=== PATIENT | female | born 1980 | race African-American/Black ===

== ENCOUNTER 2018-10-06 15:13 | Day surgery (SDC) | payer OTHER ==
[2018-10-06 16:10] VITALS: BMI 23.7
--- NOTE | 2018-10-06 16:35 | PDOC ---
History of Present Illness - General Chief Complaint: [facility] [place] Stated Complaint: SENT BY PCP Time Seen by Provider: 10/06/18 16:13 History Source: Patient Exam Limitations: No Limitations Past History - Travel Traveled outside of the country in the last 30 days: No Close contact w/someone who was outside of country & ill: No - Past Medical History Allergies/Adverse Reactions: Allergies Allergy/AdvReac Type Severity Reaction Status Date / Time No Known Allergies Allergy Verified 10/06/18 16:21 Home Medications: Ambulatory Orders NK [No Known Home Medication] 10/06/18 - Suicide/Smoking/Psychosocial Hx Smoking History: Unknown if ever smoked Hx Alcohol Use: Yes (Social) Drug/Substance Use Hx: No Review of Systems - Review of Systems Able to Perform ROS?: Yes Comments:: 10/06/18 18:12 CONSTITUTIONAL: Absent: fever, chills, diaphoresis, generalized weakness, malaise, loss of appetite GASTROINTESTINAL: Absent: abdominal pain, abdominal distension, nausea, vomiting, diarrhea, constipation, melena, hematochezia GENITOURINARY: Absent: dysuria, frequency, urgency, hesitancy, hematuria, flank pain, genital pain, vaginal bleeding MUSCULOSKELETAL: Absent: myalgia, arthralgia, joint swelling SKIN: Absent: rash, itching, pallor NEUROLOGIC: Absent: headache, focal weakness or paresthesias, dizziness, unsteady gait, seizure, mental status changes, bladder or bowel incontinence Is the patient limited Azeri proficient: No *Physical Exam - Vital Signs Last Vital Signs Temp Pulse Resp BP Pulse Ox 98.1 F 81 20 93/61 100 10/06/18 16:06 10/06/18 16:06 10/06/18 16:06 10/06/18 16:06 10/06/18 16:06 - Physical Exam Comments: 10/06/18 18:14 GENERAL: Well developed, well nourished. Awake and alert. No acute distress. ABDOMINAL: Soft. Non-tender. Non-distended. No rebound or guarding. No organomegaly. Normoactive bowel sounds. EXTREMITIES: No cyanosis. No clubbing. No edema. No calf tenderness. SKIN: Warm and dry. Normal capillary refill. No rashes. No jaundice. NEUROLOGICAL: Alert, awake, appropriate. Cranial nerves 2-12 intact. No deficits to light touch and temperature in face, upper extremities and lower extremities. No motor deficits in the in face, upper extremities and lower extremities. Normoreflexic in the upper and lower extremities. Normal speech. Toes are down- going bilaterally. Gait is normal without ataxia. Medical Decision Making - Medical Decision Making 10/06/18 18:15 The patient is a 38 -year-old female who presents to the ER today for a ultrasound. Patient states that she was at [facility] this afternoon for evaluation after positive test. Her last menstrual cycle was 08/10/18. She states that while they were doing an ultrasound at [facility] they were unable to find a gestational sac. They estimate that she is approximately 8 weeks by dates. Since they could not find gestational sac with a positive test the center to the ER for further evaluation. Denies fevers, chills, abdominal pain, vomiting, nausea, vaginal bleeding, dysuria, frequency. A/P: evaluation On exam patient's abdomen is nontender with no rebound or guarding. Pelvic deferred as patient isn't bleeding at this time and she has no abdominal pain. Transvaginal ultrasound ordered, hCG ordered HCG is 19,[address] Mane of radiology. Notes that she has a left adnexal mass Suspicious for ectopic. Patient upgraded to the main ER at this time. Sign out given to the charge nurse Goldie and CAMILA Huntley. *DC/Admit/Observation/Transfer Diagnosis at time of Disposition: Ectopic Qualifiers: Location of ectopic : tubal Intrauterine status: without intrauterine Laterality: left Qualified Code(s): O00.102 - Left tubal without intrauterine - Referrals - Patient Instructions - Post Discharge Activity
--- NOTE | 2018-10-06 18:11 | PDOC ---
*Physical Exam - Vital Signs Last Vital Signs Temp Pulse Resp BP Pulse Ox 98.1 F 81 20 93/61 100 10/06/18 16:06 10/06/18 16:06 10/06/18 16:06 10/06/18 16:06 10/06/18 16:06 ED Treatment Course - LABORATORY CBC & Chemistry Diagram: 10/06/18 18:34 10/06/18 18:32 - ADDITIONAL ORDERS Additional order review: Laboratory Results 10/06/18 16:38 Beta HCG, Quant 10645.5 Medical Decision Making - Medical Decision Making 10/06/18 18:49 Patient transferred from fast track with concern for ectopic . Briefly, this is an otherwise healthy A2, LMP 08/10, with a desired . She was referred from [facility] after ultrasound there did not show IUP. Here, ultrasound shows complex 3.4 x 3.3 x 2.8 cm left adnexal mass, with beta hCG greater than 19,000. Patient denies any vaginal bleeding or pain. Discussed with Dr. Rice, rehabilitation counsellor for obstetrics. Patient will need operative management at midnight as she last ate potato chips at about 6 PM. IV access obtained. Pre-op labs sent. Patient NPO. *DC/Admit/Observation/Transfer Diagnosis at time of Disposition: Ectopic Qualifiers: Location of ectopic : tubal Intrauterine status: without intrauterine Laterality: left Qualified Code(s): O00.102 - Left tubal without intrauterine - Discharge Dispostion Decision to Admit order: Yes - Referrals - Patient Instructions - Post Discharge Activity
[2018-10-06 18:39] LABS: BASO % 0.6 % (0-2.0); EOS % 0.5 % (0-4.5); HEMATOCRIT 31.7 % (32.4-45.2); HEMOGLOBIN 10.8 GM/dL (10.7-15.3); LYMPH % 36.9 % (8-40); MCH 31.5 pg (25.7-33.7); MEAN CELL VOLUME 92.5 fl (80-96); MEAN PLT VOLUME 7.3 fl (7.5-11.1); MONO % 6.8 % (3.8-10.2); NEUT % 55.2 % (42.8-82.8); PLATELET COUNT 282 K/MM3 (134-434); RBC 3.43 M/mm3 (3.60-5.2); RDW 12.8 % (11.6-15.6)
[2018-10-06 18:50] LABS: INR 1.1 (0.83-1.09)
[2018-10-06 19:01] LABS: ALBUMIN 3.4 g/dl (3.4-5.0); ALK PHOS 44 U/L (45-117); ANION GAP 5 MMOL/L (8-16); BILIRUBIN,TOTAL 0.4 mg/dL (0.2-1); BLOOD UREA NITROGEN 10 mg/dL (7-18); CALCIUM 9.3 mg/dL (8.5-10.1); CHLORIDE 106 mmol/L (98-107); CO2 26 mmol/L (21-32); CREATININE 0.6 mg/dL (0.55-1.3); GLUCOSE,RANDOM 93 mg/dL (74-106); POTASSIUM 3.7 mmol/L (3.5-5.1); SGOT/AST 22 U/L (15-37); SGPT/ALT 26 U/L (13-61); SODIUM 137 mmol/L (136-145); TOT PROT 7.5 g/dl (6.4-8.2)
--- NOTE | 2018-10-06 19:06 | HP ---
Admitting History and Physical - Admission History of Present Illness: 38yo @6wks by LMP sent in from [facility] after she was seen there today for her initial visit and no IUP was seen on sonogram. She denies bleeding or pain. Desired History Source: Patient Limitations to Obtaining History: No Limitations - Past Medical History ...: Yes ...: 6 ...Para: 3 - Past Surgical History Past Surgical History: Yes: None Additional Past Surgical History: LEEP - Smoking History Smoking history: Unknown if ever smoked - Alcohol/Substance Use Hx Alcohol Use: Yes (Social) History of Substance Use: reports: None Home Medications - Allergies Allergies/Adverse Reactions: Allergies Allergy/AdvReac Type Severity Reaction Status Date / Time No Known Allergies Allergy Verified 10/06/18 16:21 - Home Medications Home Medications: Ambulatory Orders Ibuprofen 600 mg PO Q6H PRN #30 tablet 10/06/18 Review of Systems - Review of Systems Cardiovascular: denies: No Symptoms, Chest Pain, Edema, Palpitations, Shortness of Breath, Other Respiratory: denies: No Symptoms, Cough, Exercise Intolerance, Hemoptysis, Orthopnea, PND, Snoring, SOB, SOB on Exertion, Wheezing, Other Gastrointestinal: denies: No Symptoms, Abdominal Pain, Bloating, Constipation, Diarrhea, Dysphagia, Indigestion, Melena, Nausea, Rectal Bleeding, Vomiting, Vomiting Blood, Other Physical Examination Vital Signs: Vital Signs Temperature 98.1 F 10/06/18 16:06 Pulse Rate 81 10/06/18 16:06 Respiratory Rate 20 10/06/18 16:06 Blood Pressure 93/61 10/06/18 16:06 O2 Sat by Pulse Oximetry (%) 100 10/06/18 16:06 Constitutional: Yes: Well Nourished, No Distress, Calm Gastrointestinal: Yes: WNL, Normal Bowel Sounds Labs: CBC, BMP 10/06/18 18:34 Imaging - Results Ultrasound: Report Reviewed Assessment/Plan 38yo w/ suspected L ectopic HCG 49978: too high for medical management L complex adnexal mass- ~3.4cm Stable, however, ate at 6pm NPO, IVFs Plan is for L salpingectomy in the OR; risk of bleeding, infection, injury to surrounding organs discussed. All questions answered; consent signed. Ayanna Rice
[2018-10-06] MEDS ORDERED: LIDOCAINE HCL 2% 100 MG/5 ML DISP.SYRIN ONE ×2 (20:53→20:56)
[2018-10-06] MEDS ORDERED: ePHEDrine SULFATE 50 MG/1 ML AMPULE ONE (20:53)
[2018-10-06] MEDS ORDERED: PHENYLEPHRINE HCL 10 MG/1 ML SINGLE DOSE VIAL ONE (20:53)
[2018-10-06] MEDS ORDERED: ROCURONIUM BROMIDE 50 MG/5 ML VIAL ONE (20:54)
[2018-10-06] MEDS ORDERED: SUCCINYLCHOLINE CHLORIDE 200 MG/10 ML VIAL ONE (20:54)
[2018-10-06] MEDS ORDERED: PROPOFOL 20 ML ONE (20:54)
[2018-10-06] MEDS ORDERED: MIDAZOLAM HCL 2 MG/2 ML SINGLE DOSE VIAL ONE (20:54)
[2018-10-06] MEDS ORDERED: BUPIVACAINE HCL/PF 0.5% (5MG/ML) 10 ML VIAL ONE (21:24)
[2018-10-06] MEDS ORDERED: BUPIVACAINE HCL/PF (5 MG/ML) 30 ML VIAL IJ ONE (21:39)
[2018-10-06] MEDS ORDERED: NEOSTIGMINE METHYLSULFATE 0.5 MG/ML - 10 ML MDV ONE ×2 (21:47→22:27)
[2018-10-06] MEDS ORDERED: GLYCOPYRROLATE 0.2 MG/1 ML VIAL ONE ×3 (21:48→22:30)
[2018-10-06] MEDS ORDERED: ACETAMINOPHEN INJECTION 100 ML IVPB ONE (22:43)
[2018-10-06] MEDS ORDERED: oxyCODONE HCL 5 MG TABLET PO PRN ×2 (22:47)
[2018-10-06] MEDS ORDERED: ONDANSETRON 4 MG/2 ML VIAL IVPUSH PRN (22:47)
[2018-10-06] MEDS ORDERED: ACETAMINOPHEN 1000 MG/100 ML VIAL (NON FORMULARY) IVPB ONE (22:48)
[2018-10-06] MEDS ORDERED: LACTATED RINGERS SOLUTION 1,000 ML IV SCH (23:00)
[2018-10-06] MEDS ORDERED: LACTATED RINGERS SOLUTION 1,000 ML/1,000 ML INFUS.BAG IV SCH (23:00)
--- NOTE | 2018-10-06 23:05 | OP ---
Operative Note - Note: Operative Date: 10/06/18 Pre-Operative Diagnosis: L ectopic Operation: Laparoscopic Left Salpingo-Oophrectomy Findings: Suspected Left tubo-ovarian ectopic Post-Operative Diagnosis: Same as Pre-op Surgeon: Aimee Rice Analytical Strategist: Pa Hayden Anesthesia: General Specimens Removed: Left fallopian tube and ovary Estimated Blood Loss (mls): 50 Drains, Volume Out (mls): 300 (clear urine)
[2018-10-07 02:42] VITALS: BP 100/65; PULSE 88; TEMP 98.4
--- NOTE | 2018-10-07 12:16 | EKG ---
Test Reason : Blood Pressure : / mmHG Vent. Rate : 080 BPM Atrial Rate : 080 BPM P-R Int : 148 ms QRS Dur : 068 ms QT Int : 376 ms P-R-T Axes : 043 034 029 degrees QTc Int : 433 ms NORMAL SINUS RHYTHM NORMAL ECG NO PREVIOUS ECGS AVAILABLE Confirmed by SHANNON AMEZCUA MD ([id number]) on 10/07/2018 12:15:52 PM Referred By: Confirmed By:SHANNON AMEZCUA MD
--- NOTE | 2018-10-08 17:19 | PATH ---
Surgical Pathology Report Patient Name: ASHISH LOPEZ Med. Rec. #: [id number] /Age/Gender: 1980 (Age: 38) / F Account: [id number] Location: AMBULATORY SURG Taken: 10/06/2018 Received: 10/07/2018 Reported: 10/08/2018 Physicians: Aimee Mixon M.D. Specimen(s) Received LEFT FALLOPIAN TUBE AND OVARY Clinical History Ectopic Final Diagnosis FALLOPIAN TUBE AND OVARY, LEFT, LAPAROSCOPIC SALPINGO-OOPHORECTOMY: CHORIONIC VILLI IN A BACKGROUND OF HEMORRHAGE PRESENT WITHIN THE FALLOPIAN TUBE, CONSISTENT WITH ECTOPIC . OVARY WITH ENDOSALPINGOSIS AND ADHESED TO THE FALLOPIAN TUBE. Electronically Signed Leyda Medina M.D. Gross Description Received in formalin labeled "left fallopian tube and left ovary," is a 4.5 cm in length dilated, possible portion of fallopian tube. The tube displays a focal defect. There is brown villous tissue extending from the defect. No somatic tissue is identified. There is a 2.5 x 1.8 x 1.7 cm portion of possible ovary attached to the fallopian tube. Mastic Sprayer sections are submitted in 4 cassettes as follows: 1-villous tissue; 2-fallopian tube; 3-4-ovary. /10/07/2018 [facility]10/07/2018
--- NOTE | 2018-11-09 10:13 | OP ---
DATE OF OPERATION: 10/07/2018 PREOPERATIVE DIAGNOSIS: Left ectopic . POSTOPERATIVE DIAGNOSIS: Left ectopic . PROCEDURE: Laparoscopic left salpingo-oophorectomy. SURGEON: Aimee Rice MD TONGER: ALLEN Oleary ANESTHESIA: General. FINDINGS: Left tubo-ovarian ectopic . Normal right tube and ovary. Normal uterus. SPECIMENS REMOVED: Left fallopian tube and ovary. ESTIMATED BLOOD LOSS: 50. URINE OUTPUT: Clear urine, 300 mL, at the end of the procedure. COMPLICATIONS: None. CONDITION: Stable to recovery room. DESCRIPTION OF PROCEDURE: After the appropriate consents were signed, patient was taken to the operating room. General anesthesia was administered. She was placed in dorsal lithotomy position. The abdomen was prepped and draped in the normal sterile fashion. A sterile Camacho catheter was inserted into the bladder. Time-out was performed confirming correct patient and procedure. Marcaine 0.5% was injected infraumbilically. Then using a scalpel, a 5-mm incision was made into the umbilicus to accommodate the scope, which was introduced under direct visualization. Correct placement was confirmed. The abdomen was then insufflated with gas. Patient was placed in Trendelenburg position. A left lower quadrant port was then introduced after the area was injected with 0.5% Marcaine. A 5-mm left lower quadrant port was inserted under direct visualization. Attention was then paid to the right lower quadrant where a 5-mm port was also inserted again under direct visualization. The bowel was scooped from the patient's lower pelvis to allow for better visualization. The uterus was noted to be normal. The right fallopian tube and ovary were noted to be normal. The left fallopian tube and ovary were noted to be entangled with a extending from the fallopian tube through the mesosalpinx into the outer surface of the patient's left ovary. Using the LigaSure device, the IP ligament was grasped, identified, and then suture ligated. The ovary and fallopian tube were also ligated along the mesosalpinx up onto the insertion point of the fallopian tube at the uterus. This was transected with the LigaSure and then ligated. Hemostasis was noted along the bite sites. The left lower quadrant port was then extended to a 10-mm port to accommodate the Endobag, which was introduced. The ectopic was placed into the Endobag and removed through the left lower quadrant port. The pelvis was suctioned and cleared of all clot and irrigation. The bite sites were re-examined and noted to be hemostatic. The right fallopian tube and ovary were inspected and noted to be normal. The left lower quadrant port was closed with a Harman-Miracle and a 0 Vicryl. The right lower quadrant port was removed under direct visualization. The umbilical port was then removed under direct visualization. All port sites were closed with 4-0 Biosyn. Appropriate bandages were placed. All sponge, lap, and needle counts were correct x2. The patient did not receive antibiotics at the start of the procedure nor at the completion. She was taken from the operating room to the recovery area in stable condition. The Camacho catheter was removed in the operating room. MD SEKOU DAWN/[id number]
== END 2018-10-07 02:43 | disposition home or self-care (01) ==
LOC: JER 15:13 → JASUSAT 10-07 00:20 → JER 10-07 00:20 → J3W 10-07 00:20 → JASUSAT 10-07 02:43
PROVIDERS: ATTEND Obstetrics & Gynecology
PROC: 10T24ZZ Resection of Products of Conception, Ectopic, Percutaneous Endoscopic Approach (ICD-10-PCS; principal; 2018-10-07)
PROC: 0UT14ZZ Resection of Left Ovary, Percutaneous Endoscopic Approach (ICD-10-PCS; 2018-10-07)
PROC: 0UB64ZZ Excision of Left Fallopian Tube, Percutaneous Endoscopic Approach (ICD-10-PCS; 2018-10-07)
DX: O00.102 Left tubal pregnancy without intrauterine pregnancy (principal)
CPT/HCPCS: 36415; 76817-TC; 80053; 84702; 85025; 85610; 86850; 86900; 86901; 88305-TC; 93005; 93010; 94760; 99283-25; J0131

== ENCOUNTER 2020-01-06 22:10 | Inpatient (IN) | payer OTHER ==
[2020-01-06] MEDS ORDERED: DEXTROSE 5%-LACTATED RINGERS 1,000 ML IV SCH (23:45)
[2020-01-07] MEDS ORDERED: AMPICILLIN - 2 GM in SODIUM CHLORIDE 100 ML IVPB ONE (00:30)
[2020-01-07 00:58] VITALS: BMI 25.3
[2020-01-07] MEDS ORDERED: AMPICILLIN SODIUM 2 GM VIAL ONE (01:00)
[2020-01-07 01:15] LABS: BASO % 0.7 % (0-2.0); EOS % 0.5 % (0-4.5); HEMATOCRIT 35.3 % (32.4-45.2); HEMOGLOBIN 11.8 GM/dL (10.7-15.3); MCH 32.2 pg (25.7-33.7); MCHC 33.4 g/dl (32.0-36.0); MEAN CELL VOLUME 96.3 fl (80-96); MEAN PLT VOLUME 8.5 fl (7.5-11.1); MONO % 12.8 % (3.8-10.2); PLATELET COUNT 272 K/MM3 (134-434); RBC 3.66 M/mm3 (3.60-5.2); RDW 14.5 % (11.6-15.6); WHITE BLOOD COUNT 7.6 K/mm3 (4.0-10.0)
[2020-01-07 01:22] LABS: INR 0.95 (0.83-1.09); PROTHROMBIN TIME (PATIENT) 11.2 SEC (9.7-13.0)
[2020-01-07 01:25] LABS: ACTIVATED PTT 27.8 SECONDS (25.2-36.5)
[2020-01-07 01:34] LABS: BLOOD UREA NITROGEN 9.3 mg/dL (7-18); CALCIUM 9.8 mg/dL (8.5-10.1); CREATININE 0.6 mg/dL (0.55-1.3); POTASSIUM 4.1 mmol/L (3.5-5.1)
[2020-01-07] MEDS ORDERED: OXYTOCIN 30 UNITS in 0.9% NS 30 UNIT/500 ML INFUS.BAG IVPB SCH (04:10)
[2020-01-07] MEDS ORDERED: OXYTOCIN 30 UNITS in 0.9% NS 30 UNIT/500 ML INFUS.BAG IVPB ONE (04:24)
[2020-01-07] MEDS ORDERED: AMPICILLIN SODIUM 1 GM VIAL ONE ×3 (04:53→11:33)
[2020-01-07] MEDS: AMPICILLIN - 1 GM in SODIUM CHLORIDE 100 ML IVPB SCH ×4 (05:00→16:16)
--- NOTE | 2020-01-07 07:33 | HP ---
Past Medical History - Primary Care Physician PCP:: Main Yang - Admission Chief Complaint: pregancy 36.6 weeks, ROM , History of Present Illness: 39 yo f g 5 [id number] 36.6 weeks, with SROM since 630 pm 01/06/20 , no bleeding, mild cramps, no fever, good fm , clear fluid , cx 3 cm 80 vx -2 mr, nitrazine positive, clear fluid History Source: Patient Limitations to Obtaining History: No Limitations - Past Medical History ...: 5 ...Para: 3 ...Term: 3 ...: 0 ...Spon : 1 ...Induced : 0 ...Living Children: 3 ...Multiple Gestation: 0 ... Weeks Gestation by Dates: 36.5 ...EDC by Dates: 01/29/20 Heme/Onc: Yes: Anemia - Past Surgical History Past Surgical History: Yes: None (hx of ectopic, s/p salpingectomy) Hx Myomectomy: No Hx Transabdominal Cerclage: No - Smoking History Smoking history: Never smoked Have you smoked in the past 12 months: No - Alcohol/Substance Use Hx Alcohol Use: No History of Substance Use: reports: None - Social History Usual Living Arrangement: Yes: With Spouse History of Recent Travel: No Home Medications - Allergies Allergies/Adverse Reactions: Allergies Allergy/AdvReac Type Severity Reaction Status Date / Time No Known Allergies Allergy Verified 10/06/18 16:21 - Home Medications Home Medications: Ambulatory Orders Ferrous Sulfate [Iron] 325 mg PO DAILY 12/21/19 Prenat 115/Iron Fum/Folic/Dss [ 19 Tablet] 1 each PO DAILY 12/21/19 Review of Systems - Review of Systems Constitutional: reports: No Symptoms Eyes: reports: No Symptoms HENT: reports: No Symptoms Neck: reports: No Symptoms Cardiovascular: reports: No Symptoms Respiratory: reports: No Symptoms Gastrointestinal: reports: No Symptoms Genitourinary: reports: No Symptoms Breasts: reports: No Symptoms Reported Musculoskeletal: reports: No Symptoms Integumentary: reports: No Symptoms Neurological: reports: No Symptoms Endocrine: reports: No Symptoms Hematology/Lymphatic: reports: No Symptoms Psychiatric: reports: No Symptoms Physical Exam - Maternity Vital Signs: Vital Signs Temperature 98.6 F 01/07/20 07:00 Pulse Rate 82 01/07/20 07:00 Respiratory Rate 18 07/18/20 07:00 Blood Pressure 102/58 L 01/07/20 07:00 O2 Sat by Pulse Oximetry (%) 100 01/06/20 22:10 Constitutional: Yes: Well Nourished, No Distress, Calm Eyes: Yes: WNL, Conjunctiva Clear, EOM Intact HENT: Yes: WNL, Atraumatic, Normocephalic Neck: Yes: WNL, Supple, Trachea Midline Cardiovascular: Yes: WNL, Regular Rate and Rhythm Breast(s): Yes: WNL - Abdominal Exam/OB Fundal Height: 36 Number of Fetuses: Single Presentation: Vertex Contractions: Yes Regularity: Irregular Intensity: Mild/Mod Monitor Mode: External Heart Rate Location: [facility] Category: I Accelerations: Non-Uniform Decelerations: None - Vaginal Exam/OB Vaginal Bleeding: No Speculum Exam: No Dilatation (cm): 3 cm Effacement (%): 80 Amniotic Membrane Status: Ruptured Nitrazine Test: Positive Amniotic Fluid: Yes: Clear Presentation: Vertex/Position Station: -2 - Physical Exam Musculoskeletal: Yes: WNL Extremities: Yes: WNL Edema: Yes Edema: LLE: Trace, RLE: Trace Deep Tendon Reflex Grade: Normal +2 Psychiatric: Yes: WNL - Labs Lab Results: CBC, BMP 01/06/20 23:50 01/06/20 23:50 Hemorrhage Risk Assessment - Risk Factors Medium Risk Factors: Yes: None High Risk Factors: Yes: None Risk Score: 1 Risk Level: Medium Risk Problem List - Problems (1) with 36 completed weeks gestation Code(s): Z3A.36 - 36 WEEKS GESTATION OF (2) PROM with onset of labor within 24 hours of rupture Code(s): O42.00 - KENZIE ROM, ONSET LABOR W/N 24 HR OF RUPT, UNSP WEEKS OF GEST Qualifiers: PROM gestational age: -third trimester Qualified Code(s): O42.013 - premature rupture of membranes, onset of labor within 24 hours of rupture, third trimester (3) AMA (advanced maternal age) multigravida 35+ Code(s): O09.529 - SUPERVISION OF ELDERLY MULTIGRAVIDA, UNSPECIFIED TRIMESTER Qualifiers: Trimester: third trimester Qualified Code(s): O09.523 - Supervision of elderly multigravida, third trimester Assessment/Plan admit GBS prophylactic iv pitocin pain management
--- NOTE | 2020-01-07 07:33 | PN ---
Progress Note (short form) - Note Progress Note: cx 5 cm 100 vx -1 , mr, fhr cat 1, irregular contraction
[2020-01-07] MEDS ORDERED: BUPIVACAINE HCL/PF 0.25% (2.5MG/ML) 10 ML VIAL ONE (08:15)
[2020-01-07] MEDS ORDERED: FENTANYL/BUPIVACAINE/NS/PF - PCEA - 50 ML DISP.SYRIN EP ONE (08:24)
[2020-01-07] MEDS ORDERED: PCA PUMP NR ONE (08:24)
[2020-01-07] MEDS ORDERED: NALOXONE HCL 0.4 MG/ML VIAL IVPUSH PRN (08:37)
[2020-01-07] MEDS ORDERED: FENTANYL/BUPIVACAINE/NS/PF - PCEA - 50 ML DISP.SYRIN EP SCH (08:45)
--- NOTE | 2020-01-07 09:25 | PN ---
Progress Note (short form) - Note Progress Note: cx 6 cm, 100 vx -1, mr , fhr cat irregular contraction
[2020-01-07] MEDS ORDERED: OXYTOCIN 20 UNITS in 0.9% NS 20 UNIT/1,000 ML INFUS.BAG IV ONE (10:49)
[2020-01-07] MEDS ORDERED: LIDOCAINE HCL 1% PRESERVATIVE FREE - 30ML VIAL ONE (10:49)
--- NOTE | 2020-01-07 12:38 | PN ---
Delivery - Delivery Vaginal Delivery: Spontaneous Type of Anesthesia: Epidural Episiotomy/Laceration: None (cx full, head on pernium , head delivered , ESPERANZA, ant. and post, shoulder with no difficulty, live baby boy, 9/9 ,placenta complete , no laceration, baby bondrd with MOM) Delivery, Single - [place] Feeding Plan Initial Plan: Elected not to breastfeed exclusively throughout hospitalization
[2020-01-07 13:14] LABS: CORD HCO3 23.4 mmHg (20-29); CORD PCO2 52.1 mmHg (30-78); CORD pH 7.27 (7.14-7.44)
[2020-01-07 13:18] LABS: CORD HCO3 22.8 mmHg (20-29); CORD PCO2 43.4 mmHg (30-78); CORD pH 7.338 (7.14-7.44)
[2020-01-07] MEDS ORDERED: BENZOCAINE 28 GM HEMORRHOIDAL OINTMENT TP PRN (15:48)
[2020-01-07] MEDS ORDERED: BENZOCAINE 20% 57 GM BOTTLE TP PRN (15:48)
[2020-01-07] MEDS ORDERED: BISACODYL 10 MG SUPP.RECT RC PRN (15:48)
[2020-01-07] MEDS ORDERED: METHYLERGONOVINE MALEATE 0.2 MG/1 ML AMP IM PRN (15:48)
[2020-01-07] MEDS ORDERED: WITCH HAZEL 50% (TUCKS) 40 PAD/JAR PAD TP PRN (15:48)
[2020-01-07] MEDS ORDERED: OXYTOCIN 20 UNITS in 0.9% NS 20 UNIT/1,000 ML INFUS.BAG IV SCH (16:00)
[2020-01-07] MEDS: FERROUS SO4 325 MG TABLET (FP) PO SCH (17:34)
[2020-01-07] MEDS: IBUPROFEN 600 MG TABLET (FP) PO PRN (21:00)
[2020-01-07] MEDS: ACETAMINOPHEN 325 MG TABLET (FP) PO PRN (21:00)
[2020-01-08] MEDS: ACETAMINOPHEN 325 MG TABLET (FP) PO PRN ×2 (00:45→06:56)
[2020-01-08] MEDS: IBUPROFEN 600 MG TABLET (FP) PO PRN ×2 (00:46→06:56)
[2020-01-08 08:42] LABS: BASO % 0.4 % (0-2.0); EOS % 0.5 % (0-4.5); HEMOGLOBIN 10.2 GM/dL (10.7-15.3); LYMPH % 22.3 % (8-40); MCH 32.1 pg (25.7-33.7); MEAN CELL VOLUME 94.2 fl (80-96); MEAN PLT VOLUME 7.6 fl (7.5-11.1); MONO % 9.1 % (3.8-10.2); NEUT % 67.7 % (42.8-82.8); PLATELET COUNT 263 K/MM3 (134-434); RBC 3.19 M/mm3 (3.60-5.2); RDW 14.2 % (11.6-15.6); WHITE BLOOD COUNT 10.8 K/mm3 (4.0-10.0)
[2020-01-08] MEDS ORDERED: PRENATAL VITAMINS W/ FOLIC ACID TABLET (FP) PO SCH (10:00)
[2020-01-08] MEDS: FERROUS SO4 325 MG TABLET (FP) PO SCH (10:01)
[2020-01-08 10:07] VITALS: BP 111/75; PULSE 80; TEMP 98
[2020-01-08] MEDS ORDERED: SENNOSIDES/DOCUSATE COMBO (SENNA PLUS) TABLET (UD) PO PRN (22:00)
--- NOTE | 2020-01-09 07:58 | DS ---
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 Vital Signs: Vital Signs Temperature 98.0 F 01/08/20 10:00 Pulse Rate 80 01/08/20 10:00 Respiratory Rate 18 01/08/20 10:00 Blood Pressure 111/75 01/08/20 10:00 O2 Sat by Pulse Oximetry (%) 98 01/07/20 11:45 Constitutional: Yes: Well Nourished, No Distress, Calm Eyes: Yes: WNL, Conjunctiva Clear, EOM Intact HENT: Yes: WNL, Atraumatic, Normocephalic Neck: Yes: WNL, Supple, Trachea Midline Cardiovascular: Yes: WNL, Regular Rate and Rhythm Respiratory: Yes: WNL, Regular, CTA Bilaterally Gastrointestinal: Yes: WNL ...Rectal Exam: Yes: WNL Renal/: Yes: WNL ....Post : Yes: Uterus firm, Uterus non-tender, Slight lochia rubra Breast(s): Yes: WNL Musculoskeletal: Yes: WNL Extremities: Yes: WNL Edema: No Integumentary: Yes: WNL Neurological: Yes: WNL, Alert, Oriented ...Motor Strength: WNL Psychiatric: Yes: WNL, Alert, Oriented Labs: CBC, BMP 01/08/20 08:24 01/06/20 23:50 Delivery - Delivery Vaginal Delivery: Spontaneous Type of Anesthesia: Epidural Episiotomy/Laceration: None EBL (cc): 300 Delivery, Single - Stages of Labor Date 1st Stage Initiatied: 01/07/20 Time 1st Stage Initiated: 07:30 Date 2nd Stage Initiated: 01/07/20 Time 2nd Stage Initiated: 11:50 Date of Delivery: 01/07/20 Time of Delivery: 12:09 Time Placenta Delivered: 12:13 Placenta: Yes: Spontaneous - Condition of Underwriting Assistant/Apron Worker Present: Milf[place]: Axel BrownRonak Infant Gender: Male Weight: 6 lb 15 oz Position: Left, OA Total Hours ROM (Hrs/Mins): 17Hrs/44Mins - 1 Minute Total Score: 9 5 Minutes Total Score: 9 - Feeding Plan Initial Plan: Elected not to breastfeed exclusively throughout hospitalization Discharge Summary Problems reviewed: Yes Reason For Visit: LABOR Procedures: Principal: Hospital Course: no complication Plan of Treatment: follow up [facility] care 4 weeks Condition: Good - Instructions Diet, Activity, Other Instructions: regular diet, no intercourse, if fever, pain, heavy vaginal bleeding call md follow up [facility] care 4 weeks Referrals: Main Yang MD [Staff Physician] - Disposition: HOME - Home Medications Comprehensive Discharge Medication List: Ambulatory Orders Ferrous Sulfate [Iron] 325 mg PO DAILY 12/21/19 Prenat 115/Iron Fum/Folic/Dss [ 19 Tablet] 1 each PO DAILY 12/21/19 Breast Pump [Baby Buddha Breast Pump] 1 each MC 5XD 90 Days #1 each 01/08/20 Ibuprofen [Motrin -] 600 mg PO QID #28 tablet 01/08/20
[2020-01-09 09:25] LABS: POC NITRAZINE POS
== END 2020-01-08 17:05 | disposition home or self-care (01) | DRG 560 ==
LOC: JLDR 22:10 → J3W 01-07 14:00
PROVIDERS: ADMIT Obstetrics & Gynecology; ATTEND Obstetrics & Gynecology
PROC: 10E0XZZ Delivery of Products of Conception, External Approach (ICD-10-PCS; principal; 2020-01-07)
DX: O42.013 Preterm premature rupture of membranes, onset of labor within 24 hours of rupture, third trimester (principal); Z3A.36 36 weeks gestation of pregnancy; Z37.0 Single live birth; O99.824 Streptococcus B carrier state complicating childbirth; O99.02 Anemia complicating childbirth; D64.9 Anemia, unspecified; Z90.79 Acquired absence of other genital organ(s)
CPT/HCPCS: 36415; 36600; 59409; 80048; 82803; 83986-QW; 85025; 85610; 85730; 86780; 86850; 86900; 86901; U0003